=== PATIENT | female | born 1965 | race Caucasian/White ===

== ENCOUNTER 2018-12-03 10:46 | Day surgery (SDC) | payer OTHER ==
[~2018-12-03 10:46] MED LIST: SOD CHLORIDE 0.9% 1,000 ML IV; VANCOMYCIN HCL 2 GM in SOD CHLORIDE 0.9% 500 ML IVPB
[2018-12-03] MEDS ORDERED: VANCOMYCIN 1 GM (PMX) 250 ML IVPB (12:00)
[2018-12-03 12:01] LABS: ADD MAN DIFF? NO
[2018-12-03] MEDS ORDERED: LIDOCAINE 2% (SDV) 5 ML INJ (12:14)
[2018-12-03] MEDS ORDERED: FENTAnyl 50 MCG/ML VIAL (12:14)
[2018-12-03] MEDS ORDERED: PROPOFOL 20 ML (12:14)
[2018-12-03 12:25] LABS: ALANINE AMINOTRANSFERASE 18 IU/L (13-69); ALBUMIN 4.7 g/dl (3.3-4.9); ALBUMIN/GLOBULIN RATIO 1.38; ALKALINE PHOSPHATASE 155 IU/L (42-121); ANION GAP 7 (5-13); ASPARTATE AMINO TRANSFERASE 31 IU/L (15-46); BILIRUBIN,INDIRECT 0.5 mg/dl (0-1.1); BILIRUBIN,TOTAL 0.5 mg/dl (0.2-1.3); BLOOD UREA NITROGEN 13 mg/dl (7-20); CALCIUM 9.6 mg/dl (8.4-10.2); CARBON DIOXIDE 28 mmol/L (21-31); CHLORIDE 108 mmol/L (97-110); CREATININE 0.65 mg/dl (0.44-1.00); Estimated GFR > 60 mL/min (>60); GLUCOSE 90 mg/dl (70-220); SODIUM 143 mmol/L (135-144); TOTAL PROTEIN 8.1 g/dl (6.1-8.1)
[2018-12-03 12:27] LABS: BASOPHIL # 0.1 10^3/ul (0.0-0.1); BASOPHILS % 1.2 % (0.0-2.0); EOSINOPHILS # 0.1 10^3/ul (0.0-0.5); HEMATOCRIT 41.8 % (37.0-47.0); HEMOGLOBIN 13.7 g/dl (12.0-16.0); LYMPHOCYTES # 1.8 10^3/ul (0.8-2.9); LYMPHOCYTES % 35.7 % (15.0-51.0); MEAN CORPUSCULAR HEMOGLOBIN 30.4 pg (29.0-33.0); MEAN CORPUSCULAR HGB CONC 32.8 g/dl (32.0-37.0); MEAN CORPUSCULAR VOLUME 92.7 fl (82.0-101.0); MEAN PLATELET VOLUME 12.2 fl (7.4-10.4); MONOCYTE # 0.4 10^3/ul (0.3-0.9); NEUTROPHIL # 2.8 10^3/ul (1.6-7.5); NEUTROPHILS % 54.9 % (39.0-77.0); PLATELET COUNT 219 10^3/UL (140-415); RED BLOOD COUNT 4.51 10^6/ul (4.20-5.40); RED CELL DISTRIBUTION WIDTH 11.5 % (11.5-14.5)
[2018-12-03 12:28] LABS: INR 0.95; PROTIME 12.8 Sec (11.9-14.9)
[2018-12-03 12:29] LABS: PARTIAL THROMBOPLASTIN TIME 30.4 Sec (23.0-35.0)
[2018-12-03] MEDS ORDERED: CLINDAMYCIN 900 MG/D5W (PMX) 50 ML IVPB (12:51)
[2018-12-03] MEDS ORDERED: ONDANSETRON 4 MG INJ IV (13:00)
[2018-12-03] MEDS ORDERED: FENTAnyl 50 MCG/ML VIAL IV ×3 (13:00)
[2018-12-03] MEDS ORDERED: OXYCODONE/ACETAMINOPHEN (5/325) TAB PO ×2 (13:00)
[2018-12-03] MEDS ORDERED: MEPERIDINE 25 MG INJ IV (13:00)
[2018-12-03] MEDS ORDERED: SUCCINYLCHOLINE CHLORIDE 100 MG/5 ML SYG IV (13:27)
[2018-12-03] MEDS ORDERED: ONDANSETRON 4 MG INJ (13:27)
[2018-12-03] MEDS ORDERED: DEXAMETHASONE 4 MG/ML 5 ML INJ (13:27)
[2018-12-03] MEDS ORDERED: ESMOLOL 0 ML (13:30)
== END 2018-12-03 15:25 | disposition home or self-care (01) ==
LOC: SDS 10:46
DX: D17.21 Benign lipomatous neoplasm of skin and subcutaneous tissue of right arm (principal)
CPT/HCPCS: 11406; 71045; 80053; 84703; 85025; 85610; 85730; 88307